=== PATIENT | male | born 1990 | race Caucasian/White ===

== ENCOUNTER 2020-04-10 16:41 | Emergency (ER) | payer SELFPAY ==
[~2020-04-10] VITALS: Ht 180.3 cm; Wt 81.8 kg
[2020-04-10 16:41] VITALS: BP 142/74
[2020-04-10] MEDS ORDERED: DEXAMETHASONE 4 MG TABLET PO ONE (16:45)
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
[2020-04-10 17:11] LABS: INFLUENZA A PATIENT NEGATIVE (NEGATIVE); INFLUENZA B PATIENT NEGATIVE (NEGATIVE)
--- NOTE | 2020-04-10 17:16 | RAD ---
EXAM: Chest, single view. HISTORY: Body aches. COMPARISON: None. FINDINGS: A frontal view of the chest is obtained. There is no infiltrate, pleural effusion or pneumo thorax. The heart is normal in size. There is thoracolumbar fusion instrumentation. IMPRESSION: No acute pulmonary finding. Electronically signed by: Shani Diaz MD (04/10/2020 5:14 PM) [id number]
--- NOTE | 2020-04-12 09:09 | NUR ---
IP:Attempted to contact pt concerning the COIV[facility] results. No answer. No voicemail available.
--- NOTE | 2020-04-12 10:03 | NUR ---
IP: Pt called to get COVID results. Informed him of Positive test and the need to quarantine for 14 days. Pt verbalized understanding. Requested results be faxed to [facility].
== END 2020-04-10 18:05 | disposition home or self-care (01) ==
LOC: ER 16:41
DX: U07.1 COVID-19 (principal); F17.200 Nicotine dependence, unspecified, uncomplicated
CPT/HCPCS: 71045; 87804; 99284; C9803; U0003